=== PATIENT | female | born 1980 | race Hispanic/Latino ===

== ENCOUNTER 2022-06-27 20:41 | Emergency (ER) | payer SELFPAY ==
[2022-06-27] MEDS ORDERED: DIPHENHYDRAMINE 50 MG/ML VIAL ONE (21:28)
[2022-06-27] MEDS ORDERED: FAMOTIDINE 20 MG/2 ML VIAL IV ONE (21:28)
[2022-06-27] MEDS ORDERED: METHYLPREDNISOLONE 125 MG INJ ONE (21:28)
--- NOTE | 2022-06-27 22:34 | EDPHYS ---
Physician Documentation [facility] Name: Basia Vasquez Age: 41 yrs Sex: Female : 1980 Arrival Date: 06/27/2022 Time: 20:41 Bed 4 Private MD: ED Physician Fredrick Elam HPI: 06/27 20:48 This 41 yrs old Black Female presents to ER via Unassigned with complaints of Allergic sp4 Reaction. 20:48 41-year-old female presents with reported allergic reaction. sp4 20:58 Very pleasant female patient presents with acute difficulty breathing and sensation of sp4 throat swelling after eating peach 30 minutes ago. Patient states she has also vomited and that she developed redness on the face and upper extremities. Patient reported generalized itching, feeling anxious and unwell. Patient has history of environmental allergies for which she takes Wendy. Patient takes Synthroid for hypothyroidism and losartan for hypertension. On arrival patient is acutely anxious. 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 - Social history:: Smoking status: Patient denies any tobacco usage or history of. - Family history:: not pertinent. ROS: 20:58 Constitutional: Negative for fever, chills, and weight loss, positive for generalized sp4 itching and anxiety Eyes: Negative for injury, pain, redness, and discharge, ENT: Negative for injury, pain, and discharge, positive sensation of throat closure, shortness of breath Neck: Negative for injury, pain, and swelling, Cardiovascular: Negative for chest pain, palpitations, and edema, Respiratory: Negative for shortness of breath, cough, wheezing, and pleuritic chest pain, Abdomen/GI: Negative for abdominal pain, nausea, vomiting, diarrhea, and constipation, Back: Negative for injury and pain, : Negative for injury, bleeding, discharge, and swelling, MS/Extremity: Negative for injury and deformity, Skin: Negative for injury, and discoloration, positive for generalized facial redness, bilateral arm redness, generalized pruritus Neuro: Negative for headache, weakness, numbness, tingling, and seizure, Psych: Negative for depression, anxiety, Allergy/Immunology: Negative for hives, rash, and allergies Endocrine: Negative for neck swelling, polydipsia, polyuria, polyphagia, and weight changes Hematologic/Lymphatic: Negative for swollen nodes, abnormal bleeding, and unusual bruising Exam: 20:58 Constitutional: This is a well developed, well nourished patient who is awake, alert, sp4 acutely anxious Head/Face: Normocephalic, atraumatic. Eyes: Pupils equal round and reactive to light, extra-ocular motions intact. Lids and lashes normal. Conjunctiva and sclera are not injected. Cornea within normal limits. Periorbital areas with no swelling, redness, or edema. ENT: Nares patent. No nasal discharge, no septal abnormalities noted. Tympanic membranes are normal and external auditory canals are clear. Oropharynx with no redness, swelling, or masses, exudates, or evidence of obstruction, uvula midline. Mucous membranes moist. No sign of pharyngeal swelling or lingual swelling Neck: Trachea midline, no thyromegaly or masses palpated, and no cervical lymphadenopathy. Supple, full range of motion without nuchal rigidity, or vertebral point tenderness. No Meningismus. Chest/axilla: Normal chest wall appearance and motion. Nontender with no deformity. No lesions are appreciated. Cardiovascular: Regular rate and rhythm with a normal S1 and S2. No gallops, murmurs, or rubs. Normal PMI, no JVD. No pulse deficits. Respiratory: Lungs have equal breath sounds bilaterally, clear to auscultation and percussion. No rales, rhonchi or wheezes noted. No increased work of breathing, no retractions or nasal flaring. Abdomen/GI: Soft, non-tender, with normal bowel sounds. No distension or tympany. No guarding or rebound. No evidence of tenderness throughout. Back: No spinal tenderness. No costovertebral tenderness. Skin: Warm, dry with normal turgor. no rashes, no lesions, and no evidence of cellulitis. Mild facial redness. MS/ Extremity: Pulses equal, no cyanosis. Neurovascular intact. Full, normal range of motion. Neuro: Awake and alert, GCS 15, oriented to person, place, time, and situation. Cranial nerves II-XII grossly intact. Motor strength 5/5 in all extremities. Sensory grossly intact. Psych: Awake, alert, with orientation to person, place and time. Appears anxious Vital Signs: 20:50 Pulse 87; Resp 22 S; Temp 97.5(TE); Pulse Ox 96% on R/A; as6 20:53 BP 117 / 65; as6 20:55 Weight 103.87 kg (R); Height 5 ft. 4 in. (R); Pain 7/10; as6 22:54 BP 113 / 77; Pulse 61; Resp 16; Temp 97.8; Pulse Ox 97% on R/A; Pain 0/10; pf1 20:55 Body Mass Index 39.31 (103.87 kg, 162.56 cm) as6 20:55 Pain Scale: Adult as6 22:54 Pain Scale: Adult pf1 MDM: 20:55 Patient medically screened. sp4 22:30 Differential diagnosis: anaphylaxis, angioedema, bronchospasm, urticaria, Vasovagal sp4 Reactions. Data reviewed: vital signs, nurses notes, lab test result(s), finger stick glucose. Consideration of Admission/Observation Escalation of care including admission/observation considered. ED course: Patient has significantly improved after medications in the ER. Patient has complete resolution of the facial redness and itching. Airway is patent, patient is stable for discharge home. 06/27 21:30 Order name: Glucose, Ancillary Testing; Complete Time: 22:26 EDMS 06/27 20:55 Order name: IV Saline Lock; Complete Time: 21:31 sp4 06/27 20:55 Order name: Accucheck Blood Glucose; Complete Time: 21:31 sp4 Administered Medications: 21:31 Drug: diphenhydrAMINE IVP 50 mg Route: IVP; Site: right antecubital; jb4 22:30 Follow up: Response: No adverse reaction; Marked relief of symptoms pf1 21:31 Drug: Famotidine IVP 20 mg Route: IVP; Site: right antecubital; jb4 22:30 Follow up: Response: No adverse reaction; Marked relief of symptoms pf1 21:32 Not Given (Other Intervention Used): MethylPREDNISolone Sodium Succinate IM 125 mg IM jb4 once 21:32 Drug: MethylPrednisoLONE IVP 125 mg Route: IVP; Site: right antecubital; jb4 22:30 Follow up: Response: No adverse reaction; Marked relief of symptoms pf1 Disposition Summary: 06/27/22 22:33 Discharge Ordered Location: Home sp4 Problem: new sp4 Symptoms: have improved sp4 Condition: Stable sp4 Diagnosis - Acute allergic reaction, acute systemic allergic reaction sp4 Followup: sp4 - With: Abdullahi Peralta MD - When: 7 - 10 days - Reason: Recheck today's complaints Discharge Instructions: - Discharge Summary Sheet sp4 - Food Allergy, Ekun-fs-Nesk sp4 Forms: - Thank You Letter sp4 Prescriptions: - Benadryl 25 mg Oral Capsule - take 1 capsule by ORAL route every 6 hours As needed PRN itching or redness; 30 sp4 tablet; Refills: 0, Product Selection Permitted - Prednisone 20 mg Oral Tablet - take 2 tablets by ORAL route once daily for 5 days; 10 tablet; Refills: 0, sp4 Product Selection Permitted Signatures: Dean Haque RN RN jb4 Bob Peraza RN RN as6 Fredrick Elam MD MD sp4 Haley Franz RN pf1
--- NOTE | 2022-06-27 22:34 | ER ---
Nurse's Notes [facility] Name: Basia Vasquez Age: 41 yrs Sex: Female : 1980 Arrival Date: 06/27/2022 Time: 20:41 Bed 4 Private MD: Diagnosis: Acute allergic reaction, acute systemic allergic reaction Presentation: 06/27 20:50 Chief complaint: Patient states: pt ate a peach approx 30 min [place] and now feels like as6 she can't breath. Coronavirus screen: At this time, the client does not indicate any symptoms associated with coronavirus-19. Ebola Screen: No symptoms or risks identified at this time. Initial Sepsis Screen: Does the patient meet any 2 criteria? No. Patient's initial sepsis screen is negative. Does the patient have a suspected source of infection? No. Patient's initial sepsis screen is negative. Risk Assessment: Do you want to hurt yourself or someone else? Patient reports no desire to harm self or others. Onset of symptoms was June 27, 2022. 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 - Social history:: Smoking status: Patient denies any tobacco usage or history of. - Family history:: not pertinent. Screenin:[facility] ED Fall Risk Assessment (Adult) History of falling in the last 3 months, pf1 including since admission No falls in past 3 months (0 pts) Confusion or Disorientation No (0 pts) Intoxicated or Sedated No (0 pts) Impaired Gait No (0 pts) Mobility Assist Device Used No (0 pt) Altered Elimination No (0 pt) Score/Fall Risk Level 0 - 2 = Low Risk Oriented to surroundings, Maintained a safe environment, Educated pt \T\ family on fall prevention, incl call for assistance when getting out of bed, Assessed \T\ reinforced patient's understanding of fall precautions, Provided non-skid footwear, Hourly rounding (assess needs \T\ fall precautionary measures) done, Used ambulatory aids as needed (educated on \T\ assisted with), Used gait belt as appropriate. Abuse screen: Denies threats or abuse. Nutritional screening: No deficits noted. Tuberculosis screening: No symptoms or risk factors identified. Assessment: 21:25 General: Appears in no apparent distress. comfortable, Behavior is calm, cooperative, jb4 appropriate for age. Pain: Denies pain. Neuro: Level of Consciousness is awake, alert, obeys commands, confused, Oriented to person, place, time, situation. Cardiovascular: Patient's skin is warm and dry. Respiratory: Airway is patent Respiratory effort is even, unlabored, Respiratory pattern is regular, symmetrical. GI: No signs and/or symptoms were reported involving the gastrointestinal system. : No signs and/or symptoms were reported regarding the genitourinary system. EENT: No signs and/or symptoms were reported regarding the EENT system. Derm: Skin is intact, Skin is pink, warm \T\ dry. Rash noted that is urticaria, on right eye and left eye. Musculoskeletal: Circulation, motion, and sensation intact. Range of motion: intact in all extremities. 22:41 Reassessment: Patient appears in no apparent distress at this time. Patient and/or jb4 family updated on plan of care and expected duration. Pain level reassessed. Patient is alert, oriented x 3, equal unlabored respirations, skin warm/dry/pink. Patient states feeling better. Patient states symptoms have improved. Vital Signs: 20:50 Pulse 87; Resp 22 S; Temp 97.5(TE); Pulse Ox 96% on R/A; as6 20:53 BP 117 / 65; as6 20:55 Weight 103.87 kg (R); Height 5 ft. 4 in. (R); Pain 7/10; as6 22:54 BP 113 / 77; Pulse 61; Resp 16; Temp 97.8; Pulse Ox 97% on R/A; Pain 0/10; pf1 20:55 Body Mass Index 39.31 (103.87 kg, 162.56 cm) as6 20:55 Pain Scale: Adult as6 22:54 Pain Scale: Adult pf1 ED Course: 20:44 Patient arrived in ED. ja2 20:48 Fredrick Elam MD is Attending Physician. sp4 20:50 Arm band placed on. as6 20:52 Triage completed. as6 21:25 Inserted saline lock: 20 gauge in right antecubital area, using aseptic technique. jb4 22:00 Patient has correct armband on for positive identification. Bed in low position. Call pf1 light in reach. 22:32 Abdullahi Peralta MD is Referral Physician. sp4 22:54 No provider procedures requiring assistance completed. IV discontinued, intact, pf1 bleeding controlled, No redness/swelling at site. Pressure dressing applied. Administered Medications: 21:31 Drug: diphenhydrAMINE IVP 50 mg Route: IVP; Site: right antecubital; jb4 22:30 Follow up: Response: No adverse reaction; Marked relief of symptoms pf1 21:31 Drug: Famotidine IVP 20 mg Route: IVP; Site: right antecubital; jb4 22:30 Follow up: Response: No adverse reaction; Marked relief of symptoms pf1 21:32 Not Given (Other Intervention Used): MethylPREDNISolone Sodium Succinate IM 125 mg IM jb4 once 21:32 Drug: MethylPrednisoLONE IVP 125 mg Route: IVP; Site: right antecubital; jb4 22:30 Follow up: Response: No adverse reaction; Marked relief of symptoms pf1 Medication: 22:55 VIS not applicable for this client. pf1 Outcome: 22:33 Discharge ordered by . sp4 22:54 Discharged to home ambulatory, with family. pf1 22:54 Condition: improved 22:54 Discharge instructions given to patient, family, Instructed on discharge instructions, follow up and referral plans. Demonstrated understanding of instructions, follow-up care, medications, Prescriptions given X 2. 22:55 Patient left the ED. pf1 Signatures: Dean Haque RN RN jb4 Taylor Avila Ashby, RN RN as6 Haley Franz RN RN pf1 Fredrick Elam MD MD sp4
[2022-06-27 23:23] VITALS: BP 113/77; TEMP 97.8; O2SAT 97
== END 2022-06-27 22:55 | disposition home or self-care (01) ==
LOC: ER 20:41
DX: T78.49XA Other allergy, initial encounter (principal); I10 Essential (primary) hypertension; E03.9 Hypothyroidism, unspecified; Z91.018 Allergy to other foods; Z98.84 Bariatric surgery status
CPT/HCPCS: 82947; 96374; 96375; 99284; J1200; J2930